=== PATIENT | female | born 1935 | race Caucasian/White ===

== ENCOUNTER 2019-08-06 18:08 | Inpatient (IN) | payer MEDICARE, OTHER ==
--- NOTE | 2019-08-06 22:07 | ED ---
Complex/Multi-Sys Presentation - HPI Summary HPI Summary: 83 year old F [facility] by family members complains of worsening intermittent shortness of breath, cough, nausea which are aggravated by exertion x 2 weeks. Seen at [facility] today 08/06 for her symptoms where she had blood work done which showed anemia. Hx anemia. Hx systolic murmur. Referred to the ED. No fever, chest pain, diarrhea, decreased appetite. Currently has bladder infection. Picked up antibiotics earlier today but hasn't started taking them yet. No dark/tarry/black/bloody stools, hemoptysis. The patient rates the pain 0/10 in severity. Symptoms alleviated by nothing. Has had transfusion in the past when she gave . No hx GI bleed. No surgical hx colonoscopy. - History Of Current Complaint Chief Complaint: EDGeneral Time Seen by Provider: 08/06/19 22:01 Hx Obtained From: Patient Onset/Duration: Lasting Days, Still Present Timing: Intermittent, Lasting: Severity Currently: None Aggravating Factor(s): Exertion Alleviating Factor(s): Nothing - Allergies/Home Medications Allergies/Adverse Reactions: Allergies Allergy/AdvReac Type Severity Reaction Status Date / Time codeine Allergy Unknown Verified 08/06/19 18:20 Reaction Details meperidine Allergy Unknown Verified 08/06/19 18:20 Reaction Details Penicillins Allergy Unknown Verified 08/06/19 18:20 Reaction Details procaine Allergy See Comment Verified 08/06/19 18:20 Home Medications: Home Medications Aspirin EC TAB* [Ecotrin EC Low Dose 81 MG*] 81 mg PO DAILY 08/06/19 [History Confirmed 08/06/19] Atenolol TAB* [Tenormin TAB* 25 MG] 25 mg PO DAILY 08/06/19 [History Confirmed 08/06/19] Clopidogrel TAB* [Plavix TAB*] 75 mg PO DAILY 08/06/19 [History Confirmed ] Nitrofurantoin Macrocrystals* [Macrodantin 100 mg*] 100 mg PO BID 08/06/19 [ History Confirmed 08/06/19] Ondansetron TAB* [Zofran 4 MG Tab*] 4 mg PO Q6H PRN 08/06/19 [History Confirmed 08/06/19] PMH/Surg Hx/FS Hx/Imm Hx Endocrine/Hematology History: Reports: Hx Anemia Cardiovascular History: Reports: Hx Hypertension History: Reports: Other Problems/Disorders - uterine/bladder prolapse - Surgical History Surgery Procedure, Year, and Place: 4 c-sections Infectious Disease History: No Infectious Disease History: Denies: Hx Clostridium Difficile, Hx Hepatitis, Hx Human Immunodeficiency Virus (HIV), Hx of Known/Suspected MRSA, Hx Shingles, Hx Tuberculosis, Hx Known/ Suspected VRE, Hx Known/Suspected VRSA, History Other Infectious Disease, Traveled Outside the [place] in Last 30 Days - Family History Known Family History: Negative: Seizure Disorder - Social History Alcohol Use: None Substance Use Type: Reports: None Hx Tobacco Use: No Smoking Status (MU): Never Smoked Tobacco Have You Smoked in the Last Year: No Review of Systems - ROS Summary Review of Systems Summary: Home Medications Medication Instructions Recorded Confirmed Type Aspirin EC TAB* [Ecotrin EC Low 81 mg PO DAILY 08/06/19 08/06/19 History Dose 81 MG*] Atenolol TAB* [Tenormin TAB* 25 MG] 25 mg PO DAILY 08/06/19 08/06/19 History Clopidogrel TAB* [Plavix TAB*] 75 mg PO DAILY 08/06/19 08/06/19 History Nitrofurantoin Macrocrystals* 100 mg PO BID 08/06/19 08/06/19 History [Macrodantin 100 mg*] Ondansetron TAB* [Zofran 4 MG Tab*] 4 mg PO Q6H PRN 08/06/19 08/06/19 History Negative: Fever Negative: Chest Pain Positive: Shortness Of Breath, Cough Gastrointestinal: Negative - decreased appetite, dark/tarry/bloody stools, hemoptysis Positive: Nausea. Negative: Diarrhea All Other Systems Reviewed And Are Negative: Yes Physical Exam - Summary Physical Exam Summary: General: Elderly FEMALE. No acute distress. HEENT: Normocephalic, Atraumatic. Eyes: Conjuctiva normal, PERRL. Oropharynx: Clear, mucous membranes moist, (-) exudates. Neck: Soft, FROM, (-) lymphadenopathy, (-) thyromegaly, (-) JVD. Cardiovascular: Normal sinus rhythm, 3/6 systolic murmur Lungs: Clear to auscultation bilaterally (-) wheezes, (-) rales, (-) rhonchi. Abdomen: Soft, non-tender, non-distended, (-) organomegaly, normal bowel sounds. Back: (-) CVA tenderness Extremities: No edema. Skin: Warm, dry, (-) rash. Neuro: Alert and oriented x3, mild confusion, no focal deficits. Psychiatric: Mood normal, affect normal. Triage Information Reviewed: Yes Vital Signs On Initial Exam: Initial Vitals Temp Pulse Resp BP Pulse Ox 98.6 F 82 18 185/77 97 08/06/19 18:11 08/06/19 18:11 08/06/19 18:11 08/06/19 18:11 08/06/19 18:11 Vital Signs Reviewed: Yes Procedures - Sedation Patient Received Moderate/Deep Sedation with Procedure: No Diagnostics - Vital Signs Vital Signs Temp Pulse Resp BP Pulse Ox 08/06/19 18:11 98.6 F 82 18 185/77 97 - Laboratory Result Diagrams: 08/06/19 21:59 08/06/19 21:59 Lab Statement: Any lab studies that have been ordered have been reviewed, and results considered in the medical decision making process. - Radiology CXR Radiology Interpretation Completed By: ED Physician Summary of Radiographic Findings: Mild increased interstitial fluid. No previous to compare - EKG 2113 Cardiac Rate: NL - 68 BPM EKG Rhythm: Sinus Rhythm Summary of EKG Findings: EKG at 2113 reveals normal sinus rhythm with rate of 68 BPM, no acute changes, no ischemic changes. This EKG was reviewed and interpreted by Dr. Lopez. Re-Evaluation - Re-Evaluation First Eval Re-Evaluation Time: 22:45 Comment: family reports previous hemoglobin 9.2 four months ago Second Eval Re-Evaluation Time: 22:50 Comment: blood work shows Hgb 5.7. ordered transfusion of 2 units. aware troponin 0.16 Complex Multi-Symp Course/Dx Course Of Treatment: 83-year-old female presents after being referred by her PCP for severe anemia. Patient had blood work done today. Has been short of breath or couple weeks now. Dyspnea with exertion. She was called tonight and said her hemoglobin was 6. Advised to come to the hospital for transfusion. Patient states she's never had a transfusion before but she has had significant anemia and has been on iron therapy. 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 Her blood work returned today at hemoglobin of 5.7. Patient consented to transfusion. 2 units packed red blood cells started. Troponin came back elevated. Patient referred to hospitalist for admission. - Diagnoses Provider Diagnoses: Anemia, Elevated troponin - Physician Notifications Discussed Care Of Patient With: Robert Latham Time Discussed With Above Provider: 01:01 Instructed by Provider To: Admit As Inpatient Discharge ED - Sign-Out/Discharge Documenting (check all that apply): Patient Departure - Discharge Plan Condition: Good Disposition: ADMITTED TO [facility] - Billing Disposition and Condition Condition: GOOD Disposition: Admitted to [facility] - Attestation Statements Document Initiated by Mehdiibe: Yes Documenting Scribe: Sonia Crowder Provider For Whom Lachelle is Documenting (Include Credential): Fernanda Lopez MD Scribe Attestation: Sonia Cary, scribed for Fernanda Lopez MD on 08/07/19 at 0631. Scribe Documentation Reviewed: Yes Provider Attestation: The documentation as recorded by the Sonia sanon accurately reflects the service I personally performed and the decisions made by , Fernanda Lopez MD Status of Scribe Document: Viewed
[2019-08-06 22:21] LABS: INR 1.07 (0.82-1.09)
[2019-08-06 22:30] LABS: Hematocrit 19 % (35-47); Hemoglobin 5.7 g/dL (12.0-16.0); Mean Corpuscular HGB Conc 31 g/dL (31-36); Mean Corpuscular Hemoglobin 19 pg (27-31); Mean Corpuscular Volume 61 fL (80-97); Platelet Count 455 10^3/uL (150-450); Red Blood Count 3.08 10^6 /uL (3.70-4.87); Red Cell Distribution Width 17 % (10-15); White Blood Count 9.4 10^3/uL (3.5-10.8)
[2019-08-06 22:34] LABS: Albumin 3.6 g/dL (3.2-5.2); Albumin/Globulin Ratio 1.2 (1-3); Calcium 8.6 mg/dL (8.6-10.3); EGFR African American 70.2 (>60); Globulin 2.9 g/dL (2-4); Potassium 4.1 mmol/L (3.5-5.0); Total Bilirubin 0.2 mg/dL (0.2-1.0); Total Protein 6.5 g/dL (6.4-8.9)
[2019-08-06 22:49] LABS: Troponin I 0.16 ng/mL (<0.03)
[2019-08-06 23:21] LABS: Microcytosis 2+
[2019-08-06 23:22] LABS: Polychromasia 1+
[2019-08-06 23:23] LABS: ABS Basophils 0.1 10^3/ul (0-0.2); ABS Eosinophils 0.2 10^3/ul (0-0.6); ABS Lymphocytes 1.9 10^3/ul (1.0-4.8); ABS Monocytes 0.6 10^3/ul (0-0.8); ABS Neutrophils 6.5 10^3/ul (1.5-7.7); Eosinophil % 2.3 %; Lymphocyte % 19.9 %; Nucleated Red Blood Cells % 0.3
[2019-08-06 23:25] LABS: Immature Retic Fraction 0.44; RBC Retic Count 2.99 10^6/uL (3.70-4.87)
[2019-08-06 23:35] LABS: Corrected Retic Count 0.9 % (0.5-1.5); Hematocrit for Retic CNT 18 % (35-47)
[2019-08-06 23:49] LABS: Urine Appearance Cloudy; Urine Bilirubin Negative (Negative); Urine Blood Negative (Negative); Urine Color Yellow; Urine Glucose Negative (Negative); Urine Ketones Negative (Negative); Urine Nitrite Negative (Negative); Urine Protein Negative (Negative); Urine Specific Gravity 1.023 (1.010-1.030); Urine Urobilinogen Negative (Negative)
[2019-08-06 23:56] LABS: Ferritin 4.5 ng/mL (11-307)
[2019-08-07 00:03] LABS: Urine Bacteria Absent (Absent); Urine Red Blood Cell 2+(6-10/hpf) (Absent); Urine Squamous Epithelial Cell Present (Absent); Urine White Blood Cell 2+(11-20/hpf) (Absent)
[2019-08-07 00:21] LABS: LDH 190 U/L (140-271); Total Iron Binding Capacity 546 mcg/dL (250-450); Transferrin 390 mg/dL (203-362)
[2019-08-07 00:23] LABS: % Iron Saturation 4 % (15-55); Iron < 20 ug/dL (50-212)
[2019-08-07 00:58] LABS: Troponin I 0.15 ng/mL (<0.03)
[2019-08-07] MEDS ORDERED: Acetaminophen TAB* 325 MG PO PRN (02:56)
[2019-08-07] MEDS: Ondansetron INJ* 2 MG/ML VIAL IV PRN ×2 (07:48→18:27)
[2019-08-07] MEDS: Atenolol TAB* 25 MG PO SCH (08:52)
[2019-08-07] MEDS: Aspirin EC TAB* 81 MG TAB.EC PO SCH (08:52)
--- NOTE | 2019-08-07 10:09 | HP ---
CC: Dr. De La Rosa at [facility] * HISTORY AND PHYSIAL: DATE OF ADMISSION: 08/07/19 CHIEF COMPLAINT: Anemia. HISTORY OF PRESENT ILLNESS: Ms. Jeffers is an 83-year-old woman who does not see medical care willingly very often. The patient has had some increasing shortness of breath, cough, and nausea in the last 2 weeks. Typically, she can walk at her house with her walker and go to a store, but now she can only walk 20 feet without severe shortness of breath. She has not noted any melena or hematochezia. The patient was seen at her primary care office and had blood work taken the day prior to admission that showed profound anemia. The patient' s family did have blood drawn 4 months ago in March and showed a hemoglobin of 9.4. The patient is anemic in the past, although this is a bit vague. Her son states that anemia in the past was treated with change in diet and iron supplements. She also is anemic after the of one of her children. The patient also reports a history of racing heart or arrhythmia some years ago that was treated with the addition of atenolol. PAST MEDICAL HISTORY: Includes anemia, heart murmur, hypertension, peripheral vascular disease in the left lower extremity, status post angioplasty, and GERD. PAST SURGICAL HISTORY: x4, left lower extremity angioplasty. MEDICATIONS ON ADMISSION: 1. Aspirin 81 mg p.o. daily. 2. Atenolol 25 mg p.o. daily. 3. Clopidogrel 75 mg p.o. daily. 4. Nitrofurantoin 100 mg p.o. b.i.d. 5. Ondansetron 4 mg p.o. q.6 hours nausea. ALLERGIES: CODEINE, DEMEROL, PENICILLINS, and PROCAINE. FAMILY HISTORY: Mother of old age. Father of heart failure. SOCIAL HISTORY: She is a retired RN and homemaker. She is a . She has 6 kids. She quit tobacco only 1 year ago. No alcohol or drug use. REVIEW OF SYSTEMS: The patient denies any fevers, anorexia, or weight loss. The patient denies any chest pain, palpitations recently. The patient denies any hemoptysis. The patient does report shortness of breath and cough. The patient denies any diarrhea or abdominal pain. She does have some heartburn and nausea chronically, which has been worse in the last few weeks. Remainder of her 14-point review of systems is negative other than mentioned in the HPI. PHYSICAL EXAMINATION GENERAL: She is alert, in no acute distress. VITAL SIGNS: Temperature is 36.8, pulse 71, respirations 18, blood pressure is 123/58, oxygen saturation is 92%. HEENT: Head is normocephalic and atraumatic. Sclerae anicteric. Pupils are equal, round, and reactive to light and accommodation. Oropharynx is moist. No lesions. NECK: No JVD. No carotid bruit. No thyromegaly. LUNGS: Clear to auscultation and percussion bilaterally. HEART: Regular rate and rhythm with a 2/6 systolic murmur left upper sternal border. She has trace lower extremity edema on the left with absent dorsalis pedis pulses. ABDOMEN: Soft, nontender. Positive bowel sounds. No hepatosplenomegaly. EXTREMITIES: No peripheral edema. NEUROLOGIC: Cranial nerves II through XII are intact. Deep tendon reflexes are absent in the lower extremities, but 1+ in the upper extremities. She is alert and oriented x3. DIAGNOSTIC STUDIES/LAB DATA: Sodium 136, potassium 4.1, chloride 106, bicarb 22, BUN 34, creatinine 0.92, glucose 99, calcium 8.6. Iron level was less than 20, TIBC was 546, ferritin level was 4.5, transferrin was 390. INR 1.07. White count 9.4, hemoglobin 5.7, hematocrit 19%, platelets are 455. MCV of 61, reticulocyte count was 2.3. Troponin is 0.16, down to 0.15 on repeat. BNP is 817. Urinalysis was 3+ leuk esterase, 2+ white cells, 2+ red cells. EKG shows normal sinus rhythm with ST depressions in I, II, aVL as well V4 through V6. There is also LVH present. Chest x-ray is negative for infiltrates or effusion. ASSESSMENT AND PLAN: An 83-year-old woman presenting with severe iron deficiency anemia. Given that she is well compensated in terms of her vital signs, this is likely a chronic anemia. We will admit her to the hospital and continue blood transfusions that were started in the emergency department, 2 units of packed red cells. She will have fecal occult blood testing in the upstairs and will have GI workup. We will hold the Plavix, continue her on aspirin. She may benefit from IV iron as well. Other anemia in the differential will include hemolytic anemia, bone marrow suppression, multiple myeloma. Tests have been sent to rule out these causes of anemia, but the main problem is iron deficiency. The patient also has cardiac ischemia evidence on EKG and an elevated troponin. This is likely exacerbated by her anemia. She will be monitored on telemetry, serial troponins, and EKG. Stress test could be considered once she is more stable. Echocardiogram is also scheduled due to her heart murmur and can also look for regional wall motion abnormalities on echo given her ischemia. Code status was full. She will have sequential compression devices for DVT prophylaxis. We will avoid heparin due to her possible GI bleed. [id number]/[facility] #: [id number] LEONILA
[2019-08-07 12:48] LABS: ABS Basophils 0.2 10^3/ul (0-0.2); ABS Eosinophils 0.3 10^3/ul (0-0.6); ABS Lymphocytes 1.1 10^3/ul (1.0-4.8); ABS Monocytes 0.7 10^3/ul (0-0.8); ABS Neutrophils 7.7 10^3/ul (1.5-7.7); ABS Nucleated RBC 0.1 10^3/ul; Eosinophil % 2.8 %; Hematocrit 26 % (35-47); Hemoglobin 7.9 g/dL (12.0-16.0); Lymphocyte % 10.9 %; Mean Corpuscular HGB Conc 31 g/dL (31-36); Mean Corpuscular Hemoglobin 21 pg (27-31); Mean Corpuscular Volume 68 fL (80-97); Mean Platelet Volume 8.2 fL (7.4-10.4); Nucleated Red Blood Cells % 0.6; Platelet Count 362 10^3/uL (150-450); Red Blood Count 3.78 10^6 /uL (3.70-4.87); Red Cell Distribution Width 22 % (10-15)
--- NOTE | 2019-08-07 13:04 | ECHO ---
*[facility]* [place] [address] Fax #: [phone] Transthoracic Echocardiogram Patient: Ethel Jeffers : 1935 Study Date: 08/07/2019 Age: 83 Gender: F HR: 70 bpm Height: 62 in /157.5 cm BSA: 1.62 m^2 Weight: 130.7 lb /59.4 kg BMI: 24 kg/m^2 *Records Management Manager: * Kathleen Hagan RDCS RN *Referring Physician: * Robert Lahtam *Reading Physician: * Lj Redding MD Indications: Murmur. History: Cardiac murmur. Anemia. Risk factors: Former tobacco use. Hypertension. Conclusions Summary: - Left ventricle: Systolic function is at the lower limits of normal. The estimated ejection fraction is 50-55%. - Regional wall motion abnormality: Mild hypokinesis of the apical anterior, apical septal, and apical myocardium. - Right ventricle: Systolic function is normal. - Mitral valve: There is moderate regurgitation. The mean diastolic gradient is 4.8 mm Hg. The valve area by pressure half-time is 3.4 cm^2. - Aortic valve: The findings are consistent with moderate to severe stenosis. There is trace to mild regurgitation. The peak systolic velocity is 3.7 m/sec. The mean systolic gradient is 34.0 mm Hg. The LVOT to aortic valve VTI ratio is 0.32. - Tricuspid valve: There is moderate regurgitation. - Pulmonary arteries: Systolic pressure is severely increased, estimated to be 63 mm Hg. - Study data: No prior study is available for comparison. Study data: Transthoracic echocardiogram. Procedure: Transthoracic echocardiography was performed. Image quality was fair. The study was technically limited due to Smoking history. Complete 2D, spectral Doppler, and color flow Doppler. Location: Bedside. Patient status: Inpatient. Patient room number: 436. No prior study is available for comparison. Rhythm: Normal sinus rhythm. Findings Left ventricle: The cavity size is normal. Wall thickness is mildly increased. Systolic function is at the lower limits of normal. The estimated ejection fraction is 50-55%. Regional wall motion abnormalities: Mild hypokinesis of the apical anterior, apical septal, and apical myocardium. Doppler parameters are consistent with abnormal left ventricular relaxation (grade 1 diastolic dysfunction). Right ventricle: The cavity size is normal. Systolic function is normal. Left atrium: The atrium is moderately dilated. Right atrium: The atrium is normal in size. Mitral valve: The mitral valve annulus appears moderately calcified. The leaflets are mildly thickened. The findings are consistent with borderline stenosis. There is moderate regurgitation. Aortic valve: The leaflets are moderately thickened with decreased excursion. The findings are consistent with moderate to severe stenosis. There is trace to mild regurgitation. Tricuspid valve: The valve is structurally normal. There is no evidence of stenosis. There is moderate regurgitation. Pulmonic valve: Not well visualized. There is trace regurgitation. Aorta: Aortic root: The aortic root is not dilated. Ascending aorta: The ascending aorta is not dilated. Aortic arch: The aortic arch is not visualized. Pericardium: There is no pericardial effusion. Pulmonary arteries: Not well visualized. Systolic pressure is severely increased, estimated to be 63 mm Hg. Systemic veins: Inferior vena cava: The vessel is mildly dilated. There is (>= 50%) respiratory change in the IVC dimension. Measurements Left ventricle Value Ref Aortic valve Value Ref MARTY, LAX 4.2 cm 3.8 - Peak v, S 3.7 m/sec ----- 5.2 VTI, S 87.4 cm ----- ESD, LAX 2.7 cm 2.2 - Mean grad, S 34.0 mm Hg ----- 3.5 Peak grad, S 54.7 mm Hg ----- FS, LAX 36 % 27 - 45 LVOT/AV, VTI ratio 0.32 ----- PW, ED (H) 1.2 cm 0.6 - JACK, VTI 0.82 cm^2 ----- 0.9 JACK, Vmax 0.78 cm^2 ----- IVS/PW, ED 0.97 -------- E', lat aparna, TDI (L) 4.1 cm/sec >=10.0 Mitral valve Value Re f E/e', lat ap[place], TDI 41 -------- Peak E 1.66 m/sec ----- E', med aparna, TDI (L) 5.0 cm/sec >=7.0 Peak A 1.5 m/sec -- --- E/e', med ap[place], TDI 33 -------- Decel time 232 ms ----- E', avg, TDI 4.5 cm/sec -------- PHT 64 ms ----- E/e', avg, TDI (H) 37 <=14 Mean grad, D 4.8 mm Hg -- --- Peak grad, D 14.5 mm Hg ----- LVOT Value Ref Peak E/A ratio 1.11 ----- Diam, S 1.82 cm -------- MVA, PHT 3.4 cm^2 ----- Area 2.6 cm^2 -------- Peak rony, S 1.09 m/sec -------- Pulmonic valve Value Ref VTI, S 27.9 cm -------- Peak v, S 0.66 m/sec ----- Peak grad, S 5 mm Hg -------- Peak grad, S 1.7 mm Hg ----- Mean grad, S 3 mm Hg -------- Tricuspid valve Value Ref Ventricular septum Value Ref TR peak v (H) 3.7 m/sec <=2.8 IVS, ED (H) 1.2 cm 0.6 - Peak RV-RA grad, S 55 mm Hg ----- 0.9 Aortic root Value Ref Right ventricle Value Ref Root diam 2.8 cm <3.9 AW thickness, ED 0.4 cm 0.1 - 0.5 Ascending aorta Value Ref MARTY, LAX 3.2 cm -------- AAo AP diam, S 3.1 cm ----- MARTY minor ax, A4C 2.9 cm 1.9 - mid 3.5 Inferior vena cava Value Ref Diam 2.3 cm ----- Left atrium Value Ref LA ID 4.7 cm -------- SI dim ES, LAX 4.7 cm -------- ML dim, A4C 4.8 cm -------- SI dim, A4C 5.6 cm -------- Vol, ES, 2-p 76 ml -------- Vol/bsa, ES, 2-p (H) 47 ml/m^2 16 - 34 Right atrium Value Ref ML dim, ES, A4C 3.3 cm 2.6 - 4.4 SI dim, ES, A4C 4.5 cm 3.4 - 5.3 Legend: (L) and (H) kathy values outside specified reference range. Prepared and electronically signed by Lj Redding MD 08/07/2019 13:03
--- NOTE | 2019-08-07 18:01 | CONS ---
GASTROENTEROLOGY CONSULT: DATE OF CONSULT: 08/07/19 CONSULTING PHYSICIAN: José Vázquez MD. REASON FOR CONSULT: Profound iron deficiency anemia in a woman taking low-dose aspirin and Plavix following Sep 2017 left leg vascular bypass surgery. HISTORY: This 83-year-old woman with past history of smoking, who had an ischemic left foot, had vascular bypass surgery in September 2017 which was effective. About 6 months ago, it was noted she was anemic and was told to take iron. She did not take it very long as apparently it constipated her. She does not really remember these details but her daughter helps through out the history. She also began complaining of acid indigestion or heartburn. She was under the impression omeprazole was unwarranted with her other meds. She would not take it. She did seek out OTC Nexium, but after her family bought it, she would not take that either. She has had some nighttime stomach distress. Sometimes she moans that her stomach is bothering her. She has had a few episodes of vomiting. She has continued to take her aspirin and Plavix. She has never had prior upper endoscopy. GERD is listed on her [facility] problem list from July 2013. She has had no overt rectal bleeding. Her bowels are fine except possibly for times on pain medicine or with the iron. PAST MEDICAL HISTORY: 1. COPD - mild. 2. Aortic stenosis - brought to her attention this year. 3. GERD. 4. History of appendectomy. 5. History of left fem-pop bypass (or what sounds to be that). 6. Hypertension - without any SD or CVA. MEDICATIONS: As an outpatient: Plavix 75mg, Aspirin 81mg, Atenolol 25. SOCIAL HISTORY: She is (her around 1999 of COPD). Her daughter and son attend all of her medical appointments in the last couple of years. REVIEW OF SYSTEMS: No history of seizure, CVA, TIA, hepatitis, arrhythmias, syncope, upper abdominal surgery. She has had 4 C-sections. PHYSICAL EXAM: She is a frail elderly woman, sitting at the bedside, in no distress at this time. She is rather garrulous, but then says for most questions she cannot remember the answer. She is alert. HEENT exam shows no icterus. She has no adenopathy. Breath sounds are diminished bilaterally, but she is in no distress and no wheezes or rhonchi. There is a harsh 3-4/6 right sternal border murmur. Heart sounds are regular. Lying supine, she has a deep infraumbilical scar consistent with . Her abdomen is firm, but without any focal tenderness. Rectal: Deferred. Extremities show no edema. Neurologic is nonfocal with normal cranial nerves and movement of all 4 extremities. She was not walked given the IVs. DIAGNOSTIC STUDIES/LAB DATA: Labs on admission: Hemoglobin 5.7, hematocrit 19 , MCV 61, platelets 455. INR 1.07. BUN 34, creatinine 0.92. BNP 817. CXR - congestive heart failure IMPRESSION: This 83-year-old woman with substantial aortic stenosis and peripheral vascular disease has had a subacute evolution of a profound iron- deficiency anemia while taking aspirin and Plavix never manifesting overt GI bleeding. She symptomatically has gastroesophageal reflux disease. She has been transfused and awaiting her endoscopy will need to evaluate her volume status and start PPI b.i.d. empirically as a peptic mechanism is likely significantly involved in the current anemia. Low-dose oral iron and parenteral iron are likely to be useful. Getting her motivated to take recommended pills may be a struggle. [id number]/[facility] #: [id number] [facility]
[2019-08-07] MEDS ORDERED: Furosemide IV* 10 MG/ML 2 ML VIAL (20 MG) IV ONE (18:19)
--- NOTE | 2019-08-07 18:34 | PN ---
Subjective Date of Service: 08/07/19 Interval History: Patient awake, she feels better post transfusion. She was asking to go home today. I was able to convince to stay as we still need to monitor her for any drop in h/h and she will require EGD to start with work up for her anemia. reluctantly she agreed. GI aware and plan for EGD in am. Past Medical History: Unchanged from Admission Objective Active Medications: Acetaminophen (Tylenol Tab*) 650 mg PO Q4H PRN PRN Reason: FEVER/HEADACHE Aspirin (Aspirin Ec Tab*) 81 mg PO DAILY [facility] Last Admin: 08/07/19 08:52 Dose: 81 mg Atenolol (Tenormin Tab*) 25 mg PO DAILY [facility] Last Admin: 08/07/19 08:52 Dose: 25 mg Ondansetron HCl (Zofran Inj*) 4 mg IV Q6H PRN PRN Reason: NAUSEA Last Admin: 08/07/19 07:48 Dose: 4 mg Pantoprazole Sodium (Protonix Iv*) 40 mg IV BID [facility] Vital Signs - 8 hr 08/07/19 08/07/19 11:15 15:15 Temperature 98.0 F 97.5 F Pulse Rate 74 68 Respiratory 20 22 Rate Blood Pressure 111/46 124/50 (mmHg) O2 Sat by Pulse 95 95 Oximetry Oxygen Devices in Use Now: None Appearance: awake, alert. oriented. no acute distress Eyes: No Scleral Icterus Ears/Nose/Mouth/Throat: NL Teeth, Lips, Gums, Mucous Membranes Moist Neck: NL Appearance and Movements; NL JVP, Trachea Midline Respiratory: Symmetrical Chest Expansion and Respiratory Effort, - - no wheezing Cardiovascular: NL Sounds; No Murmurs; No JVD, - - + murmur RSB 3/6 Abdominal: NL Sounds; No Tenderness; No Distention Extremities: - - _+ 1 edema Neurological: Alert and Oriented x 3 Result Diagrams: 08/07/19 12:27 08/06/19 21:59 Assess/Plan/Problems-Billing Assessment: 83 y/o female admitted for dyspnea on exertion found to have severe iron deficiency anemia and Echo did show severe - Patient Problems (1) Iron deficiency anemia Current Visit: Yes Status: Acute Code(s): D50.9 - IRON DEFICIENCY ANEMIA, UNSPECIFIED SNOMED Code(s): 74051406 Comment: - Iron studies did reveals Iron deficiency - Ferrtin 4.5, Iron <20, TIBC 546 - no active bleed or melena as per patient. I supsect all nutrional - However GI consult appreciated. For EGD in am - Will place her on protonix 40 mg IV bid (2) CHF (congestive heart failure) Current Visit: Yes Status: Acute Code(s): I50.9 - HEART FAILURE, UNSPECIFIED SNOMED Code(s): 91490286 Comment: - Suspect diastollic and secondary to her - Careful diuresis. Will igve lasix 20mg IV now (3) Aortic stenosis Current Visit: Yes Status: Acute Code(s): I35.0 - NONRHEUMATIC AORTIC (VALVE ) STENOSIS SNOMED Code(s): 18883927 Comment: - Severe. Careful diuresis (4) Pulmonary hypertension Current Visit: Yes Status: Acute Code(s): I27.20 - PULMONARY HYPERTENSION, UNSPECIFIED SNOMED Code(s): 07998186 (5) PAD (peripheral artery disease) Current Visit: Yes Status: Acute Code(s): I73.9 - PERIPHERAL VASCULAR DISEASE, UNSPECIFIED SNOMED Code(s): 787842364 Comment: - Off plavix for now - On Aspirin will need to follow up EGD and decide on whether or not we can resume plavix (6) DVT prophylaxis Current Visit: Yes Status: Acute Code(s): Z29.9 - ENCOUNTER FOR PROPHYLACTIC MEASURES, UNSPECIFIED SNOMED Code(s): 100912487 Comment: SCD
[2019-08-07] MEDS: Pantoprazole IV* 40 MG IV SCH (20:57)
[2019-08-08 05:24] LABS: ABS Basophils 0.1 10^3/ul (0-0.2); ABS Eosinophils 0.8 10^3/ul (0-0.6); ABS Lymphocytes 1.7 10^3/ul (1.0-4.8); ABS Monocytes 0.6 10^3/ul (0-0.8); ABS Neutrophils 6.3 10^3/ul (1.5-7.7); Eosinophil % 8.4 %; Hematocrit 22 % (35-47); Lymphocyte % 17.7 %; Mean Corpuscular HGB Conc 31 g/dL (31-36); Mean Corpuscular Hemoglobin 21 pg (27-31); Mean Corpuscular Volume 66 fL (80-97); Mean Platelet Volume 8.5 fL (7.4-10.4); Nucleated Red Blood Cells % 0.3; Platelet Count 360 10^3/uL (150-450); Red Blood Count 3.38 10^6 /uL (3.70-4.87); Red Cell Distribution Width 22 % (10-15); White Blood Count 9.6 10^3/uL (3.5-10.8)
[2019-08-08 05:39] LABS: BUN/Creatinine Ratio 28.8 (8-20); Calcium 8.1 mg/dL (8.6-10.3); EGFR African American 82.5 (>60); EGFR Non-African American 68.2 (>60); Phosphorus 3.4 mg/dL (2.5-5.0); Potassium 3.6 mmol/L (3.5-5.0)
[2019-08-08] MEDS: Ondansetron INJ* 2 MG/ML VIAL IV PRN ×2 (07:27→20:38)
[2019-08-08] MEDS ORDERED: Midazolam* 1 MG/ML 10 ML VIAL (10 MG) ONE (09:19)
[2019-08-08] MEDS ORDERED: fentaNYL* 50 MCG/ML 2 ML VIAL (100 MCG VIAL) ONE (09:19)
[2019-08-08] MEDS ORDERED: Iron Sucrose* 20 MG/ML 5 ML VIAL IV PUSH ONE (10:49)
[2019-08-08] MEDS ORDERED: Iron Sucrose* 200 MG in NS 0.9% 100 ML* 100 ML IVPB ONE (12:00)
[2019-08-08] MEDS: Aspirin EC TAB* 81 MG TAB.EC PO SCH (12:02)
[2019-08-08] MEDS: Atenolol TAB* 25 MG PO SCH (12:04)
[2019-08-08] MEDS: Pantoprazole IV* 40 MG IV SCH (12:05)
--- NOTE | 2019-08-08 15:12 | PN ---
Subjective Date of Service: 08/08/19 Interval History: patient seen today. post EGD. Result reviewed with Dr. Danielson. she does have duodenal ulcer. on protonix 40 mg bid. will give one dose of ferrous sucrose 200 mg Iv once today. recheck CBC in am Past Medical History: Unchanged from Admission Objective Active Medications: Acetaminophen (Tylenol Tab*) 650 mg PO Q4H PRN PRN Reason: FEVER/HEADACHE Atenolol (Tenormin Tab*) 25 mg PO DAILY [facility] Last Admin: 08/08/19 12:04 Dose: 25 mg Ondansetron HCl (Zofran Inj*) 4 mg IV Q6H PRN PRN Reason: NAUSEA Last Admin: 08/08/19 07:27 Dose: 4 mg Pantoprazole Sodium (Protonix Iv*) 40 mg IV BID [facility] Last Admin: 08/08/19 12:05 Dose: 40 mg Vital Signs - 8 hr 08/08/19 08/08/19 08/08/19 07:15 08:00 11:28 Temperature 97.5 F 97.1 F Pulse Rate 71 80 Respiratory 22 18 19 Rate Blood Pressure 117/54 110/45 (mmHg) O2 Sat by Pulse 92 93 Oximetry Oxygen Devices in Use Now: None Appearance: awake, alert. no distress Eyes: No Scleral Icterus, - - EOMI Neck: NL Appearance and Movements; NL JVP, Trachea Midline Respiratory: Symmetrical Chest Expansion and Respiratory Effort, Clear to Auscultation Cardiovascular: NL Sounds; No Murmurs; No JVD, No Edema Abdominal: NL Sounds; No Tenderness; No Distention Extremities: No Edema Neurological: Alert and Oriented x 3, NL Muscle Strength and Tone Result Diagrams: 08/08/19 04:49 08/08/19 04:49 Microbiology and Other Data: Microbiology 08/06/19 23:35 Urine Culture - Final Urine No Growth (<1,000 CFU/mL) 08/06/19 21:59 Aerobic Blood Culture - Preliminary Blood Venous No Growth Day 1 Anaerobic Blood Culture - Preliminary No Growth Day 1 08/06/19 21:59 Aerobic Blood Culture - Preliminary Blood Venous No Growth Day 1 Anaerobic Blood Culture - Preliminary No Growth Day 1 Assess/Plan/Problems-Billing Assessment: 83 y/o female admitted for dyspnea on exertion found to have severe iron deficiency anemia and Echo did show severe - Patient Problems (1) Iron deficiency anemia Current Visit: Yes Status: Acute Code(s): D50.9 - IRON DEFICIENCY ANEMIA, UNSPECIFIED SNOMED Code(s): 86476484 Comment: - Iron studies did reveals Iron deficiency - Ferrtin 4.5, Iron <20, TIBC 546 - no active bleed or melena as per patient. s/p EGD today 08/08/19 shows dueodenal ulcer. Will continue her on protonix 40 mg po bid - will give one dose of iron sucrose one time today (2) CHF (congestive heart failure) Current Visit: Yes Status: Acute Code(s): I50.9 - HEART FAILURE, UNSPECIFIED SNOMED Code(s): 97520136 Comment: - Suspect diastollic and secondary to her - Careful diuresis. s/p lasix 20mg IV 08/08/19 (3) Aortic stenosis Current Visit: Yes Status: Acute Code(s): I35.0 - NONRHEUMATIC AORTIC (VALVE ) STENOSIS SNOMED Code(s): 00316698 Comment: - Severe. Careful diuresis (4) Pulmonary hypertension Current Visit: Yes Status: Acute Code(s): I27.20 - PULMONARY HYPERTENSION, UNSPECIFIED SNOMED Code(s): 43197045 (5) PAD (peripheral artery disease) Current Visit: Yes Status: Acute Code(s): I73.9 - PERIPHERAL VASCULAR DISEASE, UNSPECIFIED SNOMED Code(s): 141329685 Comment: - Off plavix for now - hold aspirin for one week. - will need to follow up with vascular regarding antiplatelet therapy. for now she is high risk for bleed (6) DVT prophylaxis Current Visit: Yes Status: Acute Code(s): Z29.9 - ENCOUNTER FOR PROPHYLACTIC MEASURES, UNSPECIFIED SNOMED Code(s): 393521469 Comment: SCD
[2019-08-08] MEDS: Potassium Chlor TAB* 20 MEQ TAB.ER PO SCH (16:13)
[2019-08-08 16:49] LABS: Haptoglobin 258 mg/dL (30 - 200)
[2019-08-08] MEDS: Pantoprazole TAB * 40 MG TAB PO SCH (20:38)
[2019-08-09 05:02] LABS: ABS Basophils 0.2 10^3/ul (0-0.2); ABS Eosinophils 1.2 10^3/ul (0-0.6); ABS Lymphocytes 1.6 10^3/ul (1.0-4.8); ABS Monocytes 0.9 10^3/ul (0-0.8); ABS Neutrophils 8.2 10^3/ul (1.5-7.7); ABS Nucleated RBC 0.1 10^3/ul; Hematocrit 24 % (35-47); Hemoglobin 7.3 g/dL (12.0-16.0); Lymphocyte % 13.2 %; Mean Corpuscular HGB Conc 31 g/dL (31-36); Mean Corpuscular Hemoglobin 21 pg (27-31); Mean Corpuscular Volume 68 fL (80-97); Mean Platelet Volume 8.2 fL (7.4-10.4); Nucleated Red Blood Cells % 0.5; Platelet Count 391 10^3/uL (150-450); Red Blood Count 3.51 10^6 /uL (3.70-4.87); Red Cell Distribution Width 21 % (10-15)
[2019-08-09] MEDS ORDERED: Multivitamins/Minerals TAB PO SCH (09:00)
[2019-08-09] MEDS ORDERED: Ferrous Sulfate TAB* 325 MG PO SCH (09:00)
[2019-08-09] MEDS: Potassium Chlor TAB* 20 MEQ TAB.ER PO SCH (09:21)
[2019-08-09] MEDS: Pantoprazole TAB * 40 MG TAB PO SCH (09:22)
[2019-08-09] MEDS: Atenolol TAB* 25 MG PO SCH (09:23)
[2019-08-09 13:05] VITALS: BP 106/37
--- NOTE | 2019-08-09 20:39 | PRO ---
Amended report to correct date of procedure DATE: 08/08/19 REFERRING PHYSICIAN: Windy De La Rosa PROCEDURE: Upper gastrointestinal endoscopy and biopsy with CLOtest from mid gastric body. INDICATION: This 83-year-old woman came in with progressive anemia observed over several months. She has been on Plavix and low-dose aspirin for 22 months since vascular bypass surgery. She was hemodynamically stable despite a hemoglobin of 5.7 and a very harsh aortic murmur. She was transfused 2 units. Hemoglobin went up to the upper 7s and then trended back down overnight to 7.0. She has not had any nausea, vomiting, or overt bleeding. Her past hemoglobins had been 10.1 in September 2017 and then 8.7 in October 2017. Further data would be in the [employer] system. ENDOSCOPIST: Dr. Danielson. MEDICATIONS: Midazolam 2, fentanyl 37.5 in small increments. FINDINGS: She is a frail elderly woman in no overt cardiorespiratory distress. She was trying to negotiate a plan of being immediately discharged last night and this morning. Her family convinced her to continue with the workup. She was positioned left side down at a 30-degree elevation and moderate sedation induced with 0.5 mg doses of Versed. She tolerated the medications well. EGD: Larynx - symmetric larynx Esophagus - easily entered and the mucosa is normal in the upper, mid, and lower esophagus down to the EG junction at 38. Stomach - erythema points in a lumpy "thick skin" contour in the fundus and body. Gastric antrum had a normal contour. Duodenum - there is a deep clean based pyloric channel ulcer, oblong at 4 c' clock orientation, 8 x 11 mm without any stigmata. The apex of the bulb and second through third portions are normal. IMPRESSION: 1. Small hiatal hernia. 2. Gastritis. 3. Duodenal ulcer - hold Plavix and aspirin and consider restarting aspirin low dose in 1 week. Would give PPI therapy twice a day at least a month then daily indefinitely as she will be back on ASA.. I would not treat H. pylori at present acutely unless she is a willing enthusiastic participant in the whole regime. Being penicillin allergic prioritizing the 4 drug eradication treament will likely overwhelm her and reduce compliance with the BID PPI and limited oral iron. Addendum: Clotest positive [id number]/[facility] #: [id number] MTDD
--- NOTE | 2019-08-09 20:46 | DS ---
CC: Dr. Windy De La Rosa; Dr. Jaya Danielson.* DISCHARGE SUMMARY: DATE OF ADMISSION: 08/07/19. DATE OF DISCHARGE: 08/09/19. FINAL DISCHARGE DIAGNOSES: 1. Severe aortic stenosis. 2. Helicobacter pylori. 3. Duodenal ulcer. 4. Anemia, acute secondary to gastrointestinal bleed. 5. Anemia deficiency anemia. 6. Congestive heart failure, most likely diastolic in the setting of severe aortic stenosis. 7. Peripheral arterial disease. HOSPITAL COURSE: The patient presented to [facility] on 08/07/19 for increased shortness of breath, nausea, weakness, had difficulty ambulating with a walker secondary to her shortness of breath. On admission, it was documented that the patient did have some melena, was seen at the primary care office and when they did blood work of patient, she was found to be profoundly anemic and she was referred to the emergency room. She is on aspirin and Plavix for peripheral arterial disease and angioplasty. On admission, her hemoglobin was 5.7 with hematocrit of 19 and MCV of 61. Iron study which was done and revealed iron level of less than 20, ferritin of 4.5, iron saturation 4 with elevated iron binding capacity of 546. There she was transfused 2 units of packed RBC and her hemoglobin improved from 5.7 up to 7.9 on the and dropped down back to 7.0. She was treated with iron supplementation as well as iron shot, iron sucrose, and underwent upper endoscopy by Dr. Jaya Danielson which showed on the preliminary report a duodenal ulcer and recommended PPI b.i.d., which I had initiated. Also her H. pylori CLOtest came back positive and it was recommended by Dr. Kenney to initiate the quadruple therapy given her PENICILLIN allergy which was prescribed and transmitted to our pharmacy. Later on, I was contacted by Dr. Jaya Danielson, who recommended to hold on those quadruple therapy out of the fear that she may not comply with them and will follow up in his office and at that time, he will recommend initiating treatment, but for now, he recommended to focus on the multivitamin therapy as well as the Protonix. This morning, her hemoglobin actually responded mildly to her iron shots up to 7.3 from 7.0, no active bleed, with vital sign fairly stable, blood pressure 126/71, 93% on room air, temperature 97.3. Therefore, I deemed her stable for discharge with a strict adherence to her regimen, avoid aspirin for another week and absolutely no Plavix at this time and her angioplasty which was done, it is over a year and a half ago. PHYSICAL EXAMINATION: Vitals: Temperature 97.3, pulse 76, respirations 20, satting 93%, blood pressure 126/71. General: She is awake, alert, oriented, pleasant, in no apparent distress. Head and Neck: Normocephalic, atraumatic, supple. Lungs: Clear to auscultation bilateral. Cardiovascular: S1, S2, positive 3/6 holosystolic murmur. Abdomen: Positive bowel sounds. Soft, nontender, nondistended. Extremities: No pedal edema. INPATIENT DIAGNOSTIC STUDIES: CBC multiple on admission. Hemoglobin 5.7, up to 7.3; hematocrit 19, up to 24. MCV 61, up to 68. Haptoglobin 258, elevated. INR 1. Chemistry was significant for elevated troponin on presentation with troponin 0.16, down to 0.15. BNP elevated at 817. Iron less than 20, TIBC 546 elevated, iron saturation 4, transferrin 390, ferritin 4.5, erythropoietin 737 elevated. LDH 190. Protein electrophoresis pending at the time of this discharge. Urinalysis 2+ bacteria, 3+ leukocyte esterase, bacteria absent. Microbiology; blood culture and urine culture unremarkable. CLOtest for H. Pylori tested positive. CONSULTATION: Dr. Jaya Danielson, GI. PROCEDURE: EGD 08/08/19. DISCHARGE MEDICATIONS: 1. Tylenol 650 as needed. 2. Bismuth 2 tabs 4 times daily for 14 days. 3. Lasix 20 mg every day. 4. Metronidazole 250 mg 4 times daily. 5. Multivitamin 1 tablet daily. 6. Pantoprazole 40 mg b.i.d. 7. Potassium 20 mEq daily. 8. Tetracycline 500 mg 4 times a day for 2 weeks. 9. Atenolol 25 mg every day. 10. Aspirin 81 mg. She was instructed not to initiate until 08/15/19. The patient was instructed not to take her Plavix, not to take her Zofran, and not to take her Macrodantin. The patient was also instructed to hold off on starting her Bismuth, metronidazole, and tetracycline until she is seen by Dr. Danielson and he approves of her to start taking them. DISCHARGE INSTRUCTIONS: Adhere to all medications as prescribed and recommendation. Follow up with the appointment as scheduled. Follow up with Dr. Jaya Danielson in 1 to 2 weeks. Follow up with primary care in 1 to 2 weeks. RECOMMENDATION: Message to primary. The patient was diagnosed with severe aortic stenosis on this admission with mild CHF. She was initiated on Lasix 20 mg daily as well as potassium 20 mEq daily. Therefore, I would recommend for close followup with outpatient cardiology referral for evaluation for her aortic stenosis and whether or not she is a surgical candidate. DISCHARGE CONDITION: Stable DISCHARGE DISPOSITION: Home [id number]/[facility] #: [id number] MTDRome
[2019-08-10 14:01] LABS: Albumin 2.9 g/dL (3.4-4.7); Albumin/Globulin Ratio 0.83; Gamma Globulin 1.1 g/dL (0.6-1.6); Total Protein(PEP) 6.3 g/dL (6.3 - 7.9)
== END 2019-08-09 14:31 | disposition home health service (06) | DRG 811 ==
LOC: ED 18:08 → MEDTELE 08-07 02:22
PROVIDERS: ADMIT Internal Medicine; ATTEND Internal Medicine
PROC: 30233N1 Transfusion of Nonautologous Red Blood Cells into Peripheral Vein, Percutaneous Approach (ICD-10-PCS; principal; 2019-08-07)
PROC: 0DB68ZX Excision of Stomach, Via Natural or Artificial Opening Endoscopic, Diagnostic (ICD-10-PCS; 2019-08-09)
DX: D62 Acute posthemorrhagic anemia (principal); K29.71 Gastritis, unspecified, with bleeding; K26.4 Chronic or unspecified duodenal ulcer with hemorrhage; I50.30 Unspecified diastolic (congestive) heart failure; A04.8 Other specified bacterial intestinal infections; J44.9 Chronic obstructive pulmonary disease, unspecified; I35.0 Nonrheumatic aortic (valve) stenosis; K44.9 Diaphragmatic hernia without obstruction or gangrene; I11.0 Hypertensive heart disease with heart failure; I73.9 Peripheral vascular disease, unspecified; K21.9 Gastro-esophageal reflux disease without esophagitis; Z95.820 Peripheral vascular angioplasty status with implants and grafts; Z88.5 Allergy status to narcotic agent; Z88.6 Allergy status to analgesic agent; Z88.0 Allergy status to penicillin; Z88.8 Allergy status to other drugs, medicaments and biological substances; Z87.891 Personal history of nicotine dependence; Z28.21 Immunization not carried out because of patient refusal; Z79.899 Other long term (current) drug therapy
CPT/HCPCS: 36415; 71046; 80048; 80053; 81003; 81015; 82668; 82728; 83010; 83540; 83550; 83605; 83615; 83735; 83880; 84100; 84155; 84165; 84484; 85025; 85045; 85060; 85610; 86850; 86900; 86901; 86922; 87040; 87077; 87086; 93005; 93306; 99156; 99284; A9270-GY; J1756; J1940; J2250; J2405; J3010; P9040

== ENCOUNTER 2020-04-08 00:26 | Inpatient (IN) ==
[2020-04-08] MEDS ORDERED: Ondansetron 4 mg VIAL 2 MG/ML 2 ml VIAL IV ONE (00:54)
[2020-04-08 01:53] LABS: ABS Basophils 0.2 10^3/ul (0-0.2); ABS Eosinophils 0.1 10^3/ul (0-0.6); ABS Lymphocytes 1.1 10^3/ul (1.0-4.8); ABS Monocytes 0.5 10^3/ul (0-0.8); ABS Neutrophils 12.2 10^3/ul (1.5-7.7); Eosinophil % 0.6 %; Hematocrit 24 % (35-47); Hemoglobin 7.3 g/dL (12.0-16.0); Lymphocyte % 7.8 %; Mean Corpuscular HGB Conc 31 g/dL (31-36); Mean Corpuscular Hemoglobin 23 pg (27-31); Mean Corpuscular Volume 73 fL (80-97); Mean Platelet Volume 8.4 fL (7.4-10.4); Platelet Count 484 10^3/uL (150-450); Red Blood Count 3.23 10^6 /uL (3.70-4.87); Red Cell Distribution Width 17 % (10-15)
[2020-04-08 01:57] LABS: INR 0.95 (0.82-1.09)
[2020-04-08 02:06] LABS: ALT 42 U/L (7-52); Albumin 4.2 g/dL (3.2-5.2); Albumin/Globulin Ratio 1.2 (1-3); Alkaline Phosphatase 71 U/L (34-104); Blood Urea Nitrogen 22 mg/dL (6-24); CO2 Carbon Dioxide 21 mmol/L (22-32); Calcium 8.7 mg/dL (8.6-10.3); Chloride 102 mmol/L (101-111); EGFR African American 73.7 (>60); EGFR Non-African American 60.9 (>60); Globulin 3.5 g/dL (2-4); Glucose 179 mg/dL (70-100); Sodium 130 mmol/L (135-145); Total Protein 7.7 g/dL (6.4-8.9)
[2020-04-08 02:14] LABS: Anion Gap 7 mmol/L (2-11)
[2020-04-08] MEDS ORDERED: Iohexol 350 (CONTRAST) 500 ML MDV IV ONE (02:28)
[2020-04-08] MEDS ORDERED: Albuterol/Ipratropium NEB.SOL (2.5/0.5 MG) 3 ML NEB.SOLN INH PRN (03:42)
[2020-04-08 04:29] LABS: Urine Appearance Cloudy; Urine Bilirubin Negative (Negative); Urine Blood 2+ (Negative); Urine Color Yellow; Urine Glucose 1+(50 mg/dL) (Negative); Urine Ketones Negative (Negative); Urine Nitrite Negative (Negative); Urine Protein Negative (Negative); Urine Specific Gravity 1.058 (1.010-1.030); Urine Urobilinogen Negative (Negative)
[2020-04-08 04:32] LABS: Urine Bacteria 2+ (Absent); Urine Red Blood Cell 3+(>10/hpf) (Absent); Urine Squamous Epithelial Cell Present (Absent); Urine White Blood Cell 1+(6-10/hpf) (Absent)
[2020-04-08 05:56] LABS: Anion Gap 7 mmol/L (2-11); BUN/Creatinine Ratio 26.8 (8-20); Blood Urea Nitrogen 19 mg/dL (6-24); CO2 Carbon Dioxide 22 mmol/L (22-32); Calcium 8.9 mg/dL (8.6-10.3); Chloride 104 mmol/L (101-111); EGFR African American 94.4 (>60); EGFR Non-African American 78.1 (>60); Glucose 128 mg/dL (70-100); Potassium 4.4 mmol/L (3.5-5.0); Sodium 133 mmol/L (135-145)
[2020-04-08 06:13] LABS: Troponin I 4.72 ng/mL (<0.03)
[2020-04-08 07:49] LABS: Magnesium 2.1 mg/dL (1.9-2.7)
[2020-04-08 08:31] LABS: ABS Basophils 0.2 10^3/ul (0-0.2); ABS Lymphocytes 1.2 10^3/ul (1.0-4.8); ABS Neutrophils 9.3 10^3/ul (1.5-7.7); Eosinophil % 0.2 %; Hematocrit 22 % (35-47); Hemoglobin 6.9 g/dL (12.0-16.0); Lymphocyte % 10.5 %; Mean Corpuscular HGB Conc 31 g/dL (31-36); Mean Corpuscular Hemoglobin 23 pg (27-31); Mean Corpuscular Volume 73 fL (80-97); Mean Platelet Volume 8.3 fL (7.4-10.4); Platelet Count 399 10^3/uL (150-450); Red Blood Count 3.07 10^6 /uL (3.70-4.87); Red Cell Distribution Width 16 % (10-15); White Blood Count 11.8 10^3/uL (3.5-10.8)
[2020-04-08 08:54] LABS: Troponin I 12.14 ng/mL (<0.03)
[2020-04-08] MEDS ORDERED: Aspirin EC 81 mg TAB.EC (enteric coated) PO SCH (09:00)
[2020-04-08] MEDS ORDERED: Heparin DRIP 25,000 UNITS BAG 25,000 UNITS/500 ML BAG IV SCH (09:45)
[2020-04-08] MEDS: Multivitamins/Minerals TAB PO SCH ×2 (09:46→09:50)
[2020-04-08] MEDS: cefTRIAXone 1 gm/50 mL NS BAG 1 GM/50 ML BAG IVPB SCH (09:47)
[2020-04-08] MEDS ORDERED: Pantoprazole VIAL 40 MG VIAL IV SCH (10:00)
[2020-04-08 15:22] LABS: Troponin I 17.55 ng/mL (<0.03)
[2020-04-08 17:59] LABS: Hematocrit 27 % (35-47); Hemoglobin 8.9 g/dL (12.0-16.0); Mean Corpuscular HGB Conc 33 g/dL (31-36); Mean Corpuscular Hemoglobin 25 pg (27-31); Mean Corpuscular Volume 76 fL (80-97); Platelet Count 372 10^3/uL (150-450); Red Blood Count 3.59 10^6 /uL (3.70-4.87); Red Cell Distribution Width 20 % (10-15); White Blood Count 11.6 10^3/uL (3.5-10.8)
[2020-04-08] MEDS: Pantoprazole VIAL 40 MG VIAL IV SCH (20:49)
[2020-04-08 20:53] LABS: Troponin I 19.86 ng/mL (<0.03)
[2020-04-09 02:46] LABS: Troponin I 15.06 ng/mL (<0.03)
[2020-04-09 05:25] LABS: Hematocrit 25 % (35-47); Hemoglobin 8.3 g/dL (12.0-16.0); Mean Corpuscular HGB Conc 34 g/dL (31-36); Mean Corpuscular Hemoglobin 25 pg (27-31); Mean Corpuscular Volume 74 fL (80-97); Mean Platelet Volume 8.4 fL (7.4-10.4); Platelet Count 344 10^3/uL (150-450); Red Blood Count 3.32 10^6 /uL (3.70-4.87); Red Cell Distribution Width 20 % (10-15); White Blood Count 10.5 10^3/uL (3.5-10.8)
[2020-04-09 05:39] LABS: Calcium 8.8 mg/dL (8.6-10.3); Potassium 3.8 mmol/L (3.5-5.0)
[2020-04-09 05:45] LABS: BUN/Creatinine Ratio 22.1 (8-20); EGFR African American 99.3 (>60)
[2020-04-09 06:41] LABS: ABS Basophils 0.1 10^3/ul (0-0.2); ABS Eosinophils 0.3 10^3/ul (0-0.6); ABS Lymphocytes 1.5 10^3/ul (1.0-4.8); ABS Monocytes 0.8 10^3/ul (0-0.8); ABS Neutrophils 7.7 10^3/ul (1.5-7.7); Eosinophil % 3.1 %; Lymphocyte % 14.6 %; Nucleated Red Blood Cells % 0.1
[2020-04-09] MEDS: Pantoprazole VIAL 40 MG VIAL IV SCH ×2 (08:08→19:40)
[2020-04-09] MEDS: Multivitamins/Minerals TAB PO SCH ×2 (08:08→08:22)
[2020-04-09] MEDS: cefTRIAXone 1 gm/50 mL NS BAG 1 GM/50 ML BAG IVPB SCH (08:17)
[2020-04-10 06:36] LABS: Anion Gap 8 mmol/L (2-11); BUN/Creatinine Ratio 20.5 (8-20); Blood Urea Nitrogen 16 mg/dL (6-24); CO2 Carbon Dioxide 24 mmol/L (22-32); Calcium 8.7 mg/dL (8.6-10.3); Chloride 103 mmol/L (101-111); EGFR African American 84.7 (>60); Glucose 92 mg/dL (70-100); Potassium 3.5 mmol/L (3.5-5.0); Sodium 135 mmol/L (135-145)
[2020-04-10 07:57] LABS: ABS Basophils 0.1 10^3/ul (0-0.2); ABS Eosinophils 0.5 10^3/ul (0-0.6); ABS Lymphocytes 1.4 10^3/ul (1.0-4.8); ABS Monocytes 0.9 10^3/ul (0-0.8); ABS Neutrophils 4.8 10^3/ul (1.5-7.7); Eosinophil % 6.3 %; Hematocrit 24 % (35-47); Hemoglobin 8.2 g/dL (12.0-16.0); Lymphocyte % 18.1 %; Mean Corpuscular HGB Conc 33 g/dL (31-36); Mean Corpuscular Hemoglobin 25 pg (27-31); Mean Corpuscular Volume 75 fL (80-97); Nucleated Red Blood Cells % 0.1; Platelet Count 338 10^3/uL (150-450); Red Blood Count 3.24 10^6 /uL (3.70-4.87); Red Cell Distribution Width 20 % (10-15); White Blood Count 7.7 10^3/uL (3.5-10.8)
[2020-04-10] MEDS: Pantoprazole VIAL 40 MG VIAL IV SCH ×2 (08:29→22:44)
[2020-04-10] MEDS: Multivitamins/Minerals TAB PO SCH (08:29)
[2020-04-10] MEDS: cefTRIAXone 1 gm/50 mL NS BAG 1 GM/50 ML BAG IVPB SCH (08:29)
[2020-04-10] MEDS ORDERED: Potassium Chloride LIQUID 20 MEQ/15 ML LIQUID PO ONE (10:30)
[2020-04-10] MEDS: Enoxaparin 40 MG/0.4 ML SYR SUBCUT SCH (11:06)
[2020-04-10] MEDS ORDERED: Iron Sucrose 200 MG in NS 0.9% 100 ml BAG 100 ML IVPB ONE (14:00)
[2020-04-10 16:52] LABS: Total Iron Binding Capacity 431 mcg/dL (250-450); Transferrin 308 mg/dL (203-362)
[2020-04-10 16:54] LABS: % Iron Saturation 5 % (15-55); Iron < 20 ug/dL (50-212); Unsaturated Iron Binding < 416 ug/dL
[2020-04-10 17:12] LABS: Ferritin 12.7 ng/mL (11-307)
[2020-04-11 06:39] LABS: ABS Basophils 0.1 10^3/ul (0-0.2); ABS Eosinophils 0.5 10^3/ul (0-0.6); ABS Lymphocytes 1.3 10^3/ul (1.0-4.8); ABS Monocytes 0.8 10^3/ul (0-0.8); ABS Neutrophils 5.3 10^3/ul (1.5-7.7); Eosinophil % 6.3 %; Hematocrit 25 % (35-47); Hemoglobin 8.1 g/dL (12.0-16.0); Lymphocyte % 16.5 %; Mean Corpuscular HGB Conc 33 g/dL (31-36); Mean Corpuscular Hemoglobin 25 pg (27-31); Mean Corpuscular Volume 75 fL (80-97); Mean Platelet Volume 8.4 fL (7.4-10.4); Platelet Count 351 10^3/uL (150-450); Red Blood Count 3.26 10^6 /uL (3.70-4.87); Red Cell Distribution Width 20 % (10-15); White Blood Count 8.1 10^3/uL (3.5-10.8)
[2020-04-11 06:47] LABS: BUN/Creatinine Ratio 23.9 (8-20); Calcium 8.9 mg/dL (8.6-10.3); EGFR African American 73.7 (>60); EGFR Non-African American 60.9 (>60)
[2020-04-11] MEDS: Pantoprazole VIAL 40 MG VIAL IV SCH (08:30)
[2020-04-11] MEDS: Multivitamins/Minerals TAB PO SCH (08:30)
[2020-04-11] MEDS ORDERED: Iron Sucrose 200 MG in NS 0.9% 100 ml BAG 100 ML IVPB ONE (08:42)
[2020-04-11] MEDS ORDERED: Aspirin EC 81 mg TAB.EC (enteric coated) PO SCH (09:00)
[2020-04-11] MEDS: Enoxaparin 40 MG/0.4 ML SYR SUBCUT SCH (09:57)
[2020-04-11 15:29] VITALS: BP 142/80
== END 2020-04-11 15:50 | disposition home or self-care (01) | DRG 281 ==
LOC: ED 00:26 → ICU 03:42 → MEDTELE 04-09 10:31
PROVIDERS: ADMIT Internal Medicine; ATTEND Internal Medicine

== ENCOUNTER 2022-06-15 12:34 | Inpatient (IN) ==
[2022-06-15 14:25] LABS: ABS Basophils 0.1 10^3/ul (0-0.2); ABS Eosinophils 0.2 10^3/ul (0-0.6); ABS Lymphocytes 1.1 10^3/ul (1.0-4.8); ABS Monocytes 0.4 10^3/ul (0-0.8); ABS Neutrophils 3.6 10^3/ul (1.5-7.7); Eosinophil % 3.2 %; Hematocrit 27 % (35-47); Hemoglobin 8.4 g/dL (12.0-16.0); Lymphocyte % 20.5 %; Mean Corpuscular HGB Conc 31 g/dL (31-36); Mean Corpuscular Hemoglobin 25 pg (27-31); Mean Corpuscular Volume 80 fL (80-97); Mean Platelet Volume 9.2 fL (7.4-10.4); Platelet Count 224 10^3/uL (150-450); Red Blood Count 3.36 10^6 /uL (3.70-4.87); Red Cell Distribution Width 16 % (10-15); White Blood Count 5.4 10^3/uL (3.5-10.8)
[2022-06-15 15:08] LABS: Urine Appearance Cloudy; Urine Bilirubin Negative (Negative); Urine Blood Negative (Negative); Urine Color Yellow; Urine Glucose Negative (Negative); Urine Ketones Negative (Negative); Urine Nitrite Positive (Negative); Urine Protein Negative (Negative); Urine Specific Gravity 1.009 (1.002-1.030); Urine Urobilinogen Negative (Negative)
[2022-06-15] MEDS ORDERED: Iron Sucrose 200 MG in NS 0.9% 100 ml BAG 100 ML IVPB ONE (15:10)
[2022-06-15] MEDS ORDERED: Pantoprazole VIAL 40 MG VIAL IV ONE ×2 (15:21→15:30)
[2022-06-15 15:34] LABS: Albumin 3.8 g/dL (3.2-5.2); Albumin/Globulin Ratio 1.3 (1-3); Globulin 2.9 g/dL (2-4); Potassium 4.2 mmol/L (3.5-5.0); Total Bilirubin 0.3 mg/dL (0.2-1.0); Total Protein 6.7 g/dL (6.4-8.9); eGFR CKD-EPI 62.3 (>60)
[2022-06-15] MEDS ORDERED: Pantoprazole 80 mg in NS BAG 80 MG/250 ML BAG IV ONE (15:45)
[2022-06-15 16:21] LABS: Urine Bacteria 1+ (Absent); Urine Red Blood Cell Absent (Absent); Urine Squamous Epithelial Cell Present (Absent); Urine White Blood Cell 3+(>20/hpf) (Absent)
[2022-06-15 16:53] LABS: C Reactive Protein 1.69 mg/L (<8.01)
[2022-06-15] MEDS: cefTRIAXone 1 gm/50 mL D5W 1 GM/50 ML BAG IV SCH (17:08)
[2022-06-16] MEDS ORDERED: Pantoprazole 80 mg in NS BAG 80 MG/250 ML BAG IV SCH (02:40)
[2022-06-16 07:08] LABS: ABS Basophils 0.1 10^3/ul (0-0.2); ABS Eosinophils 0.4 10^3/ul (0-0.6); ABS Lymphocytes 0.7 10^3/ul (1.0-4.8); ABS Monocytes 0.5 10^3/ul (0-0.8); ABS Neutrophils 4.9 10^3/ul (1.5-7.7); Eosinophil % 5.6 %; Hematocrit 25 % (35-47); Hemoglobin 7.9 g/dL (12.0-16.0); Mean Corpuscular HGB Conc 32 g/dL (31-36); Mean Corpuscular Hemoglobin 25 pg (27-31); Mean Corpuscular Volume 78 fL (80-97); Mean Platelet Volume 8.9 fL (7.4-10.4); Platelet Count 224 10^3/uL (150-450); Red Blood Count 3.15 10^6 /uL (3.70-4.87); Red Cell Distribution Width 16 % (10-15); White Blood Count 6.5 10^3/uL (3.5-10.8)
[2022-06-16 07:57] LABS: Albumin 3.5 g/dL (3.2-5.2); Albumin/Globulin Ratio 1.3 (1-3); Calcium 8.8 mg/dL (8.6-10.3); Globulin 2.7 g/dL (2-4); Potassium 4.4 mmol/L (3.5-5.0); Total Bilirubin 0.4 mg/dL (0.2-1.0); Total Protein 6.2 g/dL (6.4-8.9); eGFR CKD-EPI 67.8 (>60)
[2022-06-16] MEDS ORDERED: Iron Sucrose 20 MG/ML 5 ML VIAL IV PUSH SCH (09:00)
[2022-06-16] MEDS: Iron Sucrose 200 MG in NS 0.9% 100 ml IVPB SCH (09:49)
[2022-06-16] MEDS: Pantoprazole VIAL 40 MG VIAL IV SCH ×3 (11:40→23:16)
[2022-06-16] MEDS ORDERED: Iron Sucrose 200 MG in NS 0.9% 100 ml BAG 100 ML IVPB ONE (16:00)
[2022-06-16 16:38] LABS: Hematocrit 28 % (35-47); Hemoglobin 8.5 g/dL (12.0-16.0)
[2022-06-16] MEDS ORDERED: Magnesium Hydroxide LIQ 30 ML UDC PO PRN (16:48)
[2022-06-16] MEDS: cefTRIAXone 1 gm/50 mL D5W 1 GM/50 ML BAG IV SCH (17:10)
[2022-06-16] MEDS ORDERED: Cyanocobalamin INJ 1,000 MCG/ML VIAL 1 ML VIAL IM ONE (17:12)
[2022-06-17] MEDS ORDERED: Haloperidol 5 mg/ml SDV IV/IM 5 MG/ML AMP IV SLOW PU ONE (01:32)
[2022-06-17] MEDS ORDERED: Furosemide 40 mg/4 ml IV VIAL IV SLOW PU ONE ×2 (03:54→05:40)
[2022-06-17] MEDS ORDERED: Furosemide 40 mg/4 ml IV VIAL ONE (03:56)
[2022-06-17] MEDS ORDERED: Remdesivir 100 mg Vial 200 MG in NS 0.9% 250 ml 210 ML IV ONE (04:08)
[2022-06-17] MEDS ORDERED: Remdesivir 100 mg Vial 100 MG in NS 0.9% 250 ml 230 ML IV SCH (04:15)
[2022-06-17 04:37] LABS: ABS Basophils 0.1 10^3/ul (0-0.2); ABS Eosinophils 0.1 10^3/ul (0-0.6); ABS Lymphocytes 1.9 10^3/ul (1.0-4.8); ABS Monocytes 0.9 10^3/ul (0-0.8); ABS Neutrophils 10.6 10^3/ul (1.5-7.7); Eosinophil % 0.5 %; Hematocrit 30 % (35-47); Hemoglobin 9.1 g/dL (12.0-16.0); Lymphocyte % 13.8 %; Mean Corpuscular HGB Conc 31 g/dL (31-36); Mean Corpuscular Hemoglobin 25 pg (27-31); Mean Corpuscular Volume 79 fL (80-97); Mean Platelet Volume 9.2 fL (7.4-10.4); Nucleated Red Blood Cells % 0.1; Platelet Count 337 10^3/uL (150-450); Red Blood Count 3.73 10^6 /uL (3.70-4.87); Red Cell Distribution Width 16 % (10-15); White Blood Count 13.5 10^3/uL (3.5-10.8)
[2022-06-17 04:41] LABS: INR 0.98 (0.89-1.11)
[2022-06-17 05:12] LABS: Albumin 3.9 g/dL (3.2-5.2); Albumin/Globulin Ratio 1.3 (1-3); Globulin 3.1 g/dL (2-4); Potassium 3.6 mmol/L (3.5-5.0); Total Bilirubin 0.4 mg/dL (0.2-1.0); eGFR CKD-EPI 56.9 (>60)
[2022-06-17 05:20] LABS: PCO2 Arterial 39 mmHg (35-45); PO2 Arterial 69 mmHg (80-100)
[2022-06-17] MEDS: Iron Sucrose 200 MG in NS 0.9% 100 ml IVPB SCH (09:29)
[2022-06-17] MEDS: Pantoprazole VIAL 40 MG VIAL IV SCH ×2 (09:58→22:05)
[2022-06-17] MEDS: cefTRIAXone 1 gm/50 mL D5W 1 GM/50 ML BAG IV SCH (16:04)
[2022-06-18 06:30] LABS: INR 1.09 (0.89-1.11)
[2022-06-18 06:46] LABS: Albumin 3.7 g/dL (3.2-5.2); Albumin/Globulin Ratio 1.3 (1-3); Calcium 9.2 mg/dL (8.6-10.3); Globulin 2.8 g/dL (2-4); Magnesium 2.1 mg/dL (1.9-2.7); Potassium 3.7 mmol/L (3.5-5.0); Total Bilirubin 0.3 mg/dL (0.2-1.0); Total Protein 6.5 g/dL (6.4-8.9); eGFR CKD-EPI 58.4 (>60)
[2022-06-18] MEDS ORDERED: Furosemide 40 mg/4 ml IV VIAL IV ONE (07:20)
[2022-06-18 07:32] LABS: ABS Basophils 0.1 10^3/ul (0-0.2); ABS Eosinophils 0.1 10^3/ul (0-0.6); ABS Lymphocytes 1.4 10^3/ul (1.0-4.8); ABS Monocytes 0.7 10^3/ul (0-0.8); ABS Neutrophils 4.3 10^3/ul (1.5-7.7); Eosinophil % 1.8 %; Hematocrit 29 % (35-47); Hemoglobin 9.2 g/dL (12.0-16.0); Lymphocyte % 20.7 %; Mean Corpuscular HGB Conc 32 g/dL (31-36); Mean Corpuscular Hemoglobin 25 pg (27-31); Mean Corpuscular Volume 79 fL (80-97); Mean Platelet Volume 9.4 fL (7.4-10.4); Nucleated Red Blood Cells % 0.1; Platelet Count 267 10^3/uL (150-450); Red Blood Count 3.69 10^6 /uL (3.70-4.87); Red Cell Distribution Width 16 % (10-15); White Blood Count 6.5 10^3/uL (3.5-10.8)
[2022-06-18] MEDS ORDERED: Furosemide 20 mg/2 ml IV VIAL IV ONE (08:54)
[2022-06-18] MEDS: Pantoprazole VIAL 40 MG VIAL IV SCH ×2 (08:58→20:58)
[2022-06-18] MEDS: Iron Sucrose 200 MG in NS 0.9% 100 ml IVPB SCH (09:01)
[2022-06-18] MEDS: Remdesivir 100 mg Vial 100 MG in NS 0.9% 250 ml 230 ML IV SCH (09:15)
[2022-06-18] MEDS: cefTRIAXone 1 gm/50 mL D5W 1 GM/50 ML BAG IV SCH (16:14)
[2022-06-19 07:01] LABS: ABS Basophils 0.1 10^3/ul (0-0.2); ABS Eosinophils 0.2 10^3/ul (0-0.6); ABS Lymphocytes 1.4 10^3/ul (1.0-4.8); ABS Monocytes 0.7 10^3/ul (0-0.8); ABS Neutrophils 3.9 10^3/ul (1.5-7.7); Eosinophil % 3.1 %; Hematocrit 26 % (35-47); Hemoglobin 8.4 g/dL (12.0-16.0); Lymphocyte % 22.1 %; Mean Corpuscular HGB Conc 32 g/dL (31-36); Mean Corpuscular Hemoglobin 25 pg (27-31); Mean Corpuscular Volume 78 fL (80-97); Nucleated Red Blood Cells % 0.1; Platelet Count 259 10^3/uL (150-450); Red Blood Count 3.33 10^6 /uL (3.70-4.87); Red Cell Distribution Width 16 % (10-15); White Blood Count 6.3 10^3/uL (3.5-10.8)
[2022-06-19 07:11] LABS: INR 1.16 (0.89-1.11)
[2022-06-19 07:18] LABS: Calcium 8.9 mg/dL (8.6-10.3); Potassium 3.5 mmol/L (3.5-5.0); eGFR CKD-EPI 66.8 (>60)
[2022-06-19] MEDS: Iron Sucrose 200 MG in NS 0.9% 100 ml IVPB SCH (07:45)
[2022-06-19] MEDS: Pantoprazole VIAL 40 MG VIAL IV SCH (07:45)
[2022-06-19] MEDS: Remdesivir 100 mg Vial 100 MG in NS 0.9% 250 ml 230 ML IV SCH (08:23)
[2022-06-19 11:28] VITALS: BP 107/67
== END 2022-06-19 13:07 | disposition home or self-care (01) | DRG 811 ==
LOC: EDHOLD 12:34 → ED 12:34 → SUATTDRO 16:31 → EDHOLD 20:28 → MED 21:21
PROVIDERS: ADMIT Internal Medicine; ATTEND Internal Medicine

== ENCOUNTER 2022-06-26 01:33 | Inpatient (IN) ==
[2022-06-26] MEDS ORDERED: Furosemide 20 mg/2 ml IV VIAL IV SLOW PU ONE ×2 (02:31→12:00)
[2022-06-26 02:55] LABS: ABS Basophils 0.1 10^3/ul (0-0.2); ABS Eosinophils 0.2 10^3/ul (0-0.6); ABS Lymphocytes 0.9 10^3/ul (1.0-4.8); ABS Monocytes 0.5 10^3/ul (0-0.8); ABS Neutrophils 9.3 10^3/ul (1.5-7.7); Eosinophil % 1.5 %; Hematocrit 30 % (35-47); Hemoglobin 9.7 g/dL (12.0-16.0); Lymphocyte % 8.3 %; Mean Corpuscular HGB Conc 32 g/dL (31-36); Mean Corpuscular Hemoglobin 27 pg (27-31); Mean Corpuscular Volume 83 fL (80-97); Platelet Count 356 10^3/uL (150-450); Red Blood Count 3.65 10^6 /uL (3.70-4.87); Red Cell Distribution Width 21 % (10-15)
[2022-06-26 03:18] LABS: High Sens Troponin Baseline 58 pg/mL (<15)
[2022-06-26 03:30] LABS: ALT 43 U/L (7-52); Albumin 3.9 g/dL (3.2-5.2); Albumin/Globulin Ratio 1.3 (1-3); Alkaline Phosphatase 95 U/L (35-149); Blood Urea Nitrogen 18 mg/dL (6-24); CO2 Carbon Dioxide 21 mmol/L (22-32); Calcium 8.5 mg/dL (8.6-10.3); Chloride 106 mmol/L (101-111); Globulin 3.1 g/dL (2-4); Glucose 178 mg/dL (70-100); Sodium 137 mmol/L (135-145); eGFR CKD-EPI 76.5 (>60)
[2022-06-26 03:44] LABS: Anion Gap 10 mmol/L (2-11)
[2022-06-26 04:19] LABS: High Sensitivity Troponin 1 Hr 117 pg/mL (<15)
[2022-06-26] MEDS ORDERED: Ondansetron 4 mg VIAL 2 MG/ML 2 ml VIAL IV PRN (06:08)
[2022-06-26] MEDS: Enoxaparin 40 MG/0.4 ML SYR SUBCUT SCH (06:55)
[2022-06-26] MEDS ORDERED: Cyanocobalamin INJ 1,000 MCG/ML VIAL 1 ML VIAL IM ONE (07:51)
[2022-06-26 08:10] LABS: Total Iron Binding Capacity 391 mcg/dL (250-450); Transferrin 279 mg/dL (203-362)
[2022-06-26 08:30] LABS: Ferritin 384.8 ng/mL (11-307)
[2022-06-26 08:47] LABS: % Iron Saturation 18 % (15-55); Iron 69 ug/dL (50-212); Unsaturated Iron Binding 322 ug/dL
[2022-06-26 14:39] LABS: Calcium 8.5 mg/dL (8.6-10.3); Potassium 3.8 mmol/L (3.5-5.0); eGFR CKD-EPI 71.9 (>60)
[2022-06-27] MEDS ORDERED: Furosemide 40 mg/4 ml IV VIAL IV ONE (07:13)
[2022-06-27] MEDS ORDERED: Potassium Chlor 20 meq TAB.ER PO ONE (07:14)
[2022-06-27] MEDS: Enoxaparin 40 MG/0.4 ML SYR SUBCUT SCH (09:24)
[2022-06-27 12:26] VITALS: BP 122/62
== END 2022-06-27 13:45 | disposition home or self-care (01) | DRG 307 ==
LOC: ED 01:33 → EDHOLD 01:33 → SUATTDRO 06:08 → EDHOLD 08:36 → MEDTELE 09:50
PROVIDERS: ADMIT Student in an Organized Health Care Education/Training Program; ATTEND Internal Medicine